=== PATIENT | male | born 1990 | race Caucasian/White ===

== ENCOUNTER 2022-01-04 18:36 | Emergency (ER) | payer BC ==
[2022-01-04 19:40] LABS: CORONAVIRUS COVID-19 NAA POSITIVE (NEGATIVE); RESPIRATORY SYNCYTIAL VIR NAA NEGATIVE (NEGATIVE)
== END 2022-01-04 20:04 | disposition home or self-care (01) ==
LOC: VM.ED 18:36
DX: U07.1 COVID-19 (principal)
CPT/HCPCS: 0241U; 71045; 99283